=== PATIENT | male | born 1950 | race Caucasian/White ===

== ENCOUNTER → 2016-07-09 | Outpatient (CLI) | payer MEDICARE | END | disposition home or self-care (01) | LOC: PCVCCLINIC 15:52 | PROVIDERS: ATTEND Internal Medicine Cardiovascular Disease | DX: E78.5 Hyperlipidemia, unspecified (principal); I10 Essential (primary) hypertension; E03.9 Hypothyroidism, unspecified; I87.2 Venous insufficiency (chronic) (peripheral); I48.91 Unspecified atrial fibrillation; R07.89 Other chest pain; Z79.899 Other long term (current) drug therapy | CPT/HCPCS: 80061; 93005; G0463 ==

== ENCOUNTER → 2016-07-23 | Outpatient (CLI) | payer MEDICARE | END | disposition home or self-care (01) | LOC: PCVCIMAG 07:48 | PROVIDERS: ATTEND Internal Medicine Cardiovascular Disease | DX: I48.91 Unspecified atrial fibrillation (principal); I73.9 Peripheral vascular disease, unspecified; I10 Essential (primary) hypertension | CPT/HCPCS: 93306 ==

== ENCOUNTER → 2018-01-24 | Outpatient (CLI) | payer MEDICARE ==
--- NOTE | 2018-01-24 10:05 | PCVCIMAG ---
APPROVED REPORT Study performed: 01/24/2018 08:27:56 EXAM: Comprehensive 2D, Doppler, and color-flow Echocardiogram Patient Location: Echo lab Status: routine BSA: 2.39 HR: 64 bpmBP: 140/88 mmHg Rhythm: NSR Other Information Study Quality: Good Risk Factors: Cardiac Risk Factors: HTN, Hyperlipidemia Indications Atrial Fibrillation Hypertension/HDD PVD 2D Dimensions LVEF(%): 72.11 (>50%) IVSd: 13.37 (7-11mm)LVOT Diam: 23.10 (18-24mm) LVDd: 51.75 mm PWd: 13.46 (7-11mm)Ascending Ao: 41.69 (22-36mm) LVDs: 30.25 (25-40mm) Left Atrium: 44.24 (27-40mm) Aortic Root: 36.18 mm LV Single Plane 4CH: 57.96 % LV Single Plane 2CH: 73.46 %[place]'s LVEF: 65.71 % Biplane EF: 66.8 % Volumes Left Atrial Volume (Systole) Single Plane 4CH: 76.96 mLSingle Plane 2CH: 57.63 mL LA ESV Index: 30.00 mL/m2 Aortic Valve AoV Peak Ye.: 1.53 m/s AO Peak Gr.: 9.34 mmHgLVOT Max P.12 mmHg LVOT Max V: 1.13 m/s VANESSA Vmax: 3.10 cm2 Mitral Valve E/A Ratio: 1.7 MV Decel. Time: 325.47 ms MV E Max Ye.: 0.72 m/s MV A Ye.: 0.43 m/s IVRT: 96.89 ms TDI E/Lateral E': 6.55E/Medial E': 9.00 Medial E' Ye.: 0.08 m/s Lateral E' Ye.: 0.11 m/s Pulmonary Valve PV Peak Gr.: 3.11 mmHg Pulmonary Vein P Vein S: 0.64 m/sP Vein A: 0.29 m/s P Vein D: 0.64 m/sP Vein A Dur.: 90.0 msec P Vein S/D Ratio: 1.00 Tricuspid Valve TR Peak Ye.: 2.81 m/s TR Peak Gr.: 31.57 mmHg Left Ventricle The left ventricle is normal size. There is normal LV segmental wall motion. There is normal left ventricular wall thickness. Left ventricular systolic function is normal. The left ventricular ejection fraction is within the normal range. LVEF is 60-65%. The left ventricular diastolic function is normal. Right Ventricle The right ventricle is normal size. The right ventricular systolic function is normal. Atria The left atrium size is normal. The right atrium size is normal. Aortic Valve The aortic valve is normal in structure. Trace aortic regurgitation. There is no aortic valvular stenosis. Mitral Valve The mitral valve is normal in structure. There is no mitral valve regurgitation noted. No evidence of mitral valve stenosis. Tricuspid Valve The tricuspid valve is normal in structure. Mild tricuspid regurgitation. Pulmonary artery pressure is 39mmhg. Pulmonic Valve The pulmonary valve is normal in structure. Trace pulmonic regurgitation. Great Vessels The aortic root is normal in size. The ascending aorta is borderline dilated measuring 4.2cm. IVC is normal in size and collapses with >50% inspiration Pericardium There is no pericardial effusion. <Conclusion> The left ventricle is normal size. LVEF is 60-65%. The left ventricular diastolic function is normal. The right ventricle is normal size. The left atrium size is normal. The aortic valve is normal in structure. Trace aortic regurgitation. There is no mitral valve regurgitation noted. Mild tricuspid regurgitation. Pulmonary artery pressure is 39mmhg. The aortic root is normal in size. There is no pericardial effusion.
== END | disposition home or self-care (01) ==
LOC: PCVCIMAG 12:55
PROVIDERS: ATTEND Internal Medicine Cardiovascular Disease
DX: I07.1 Rheumatic tricuspid insufficiency (principal); I48.91 Unspecified atrial fibrillation; I10 Essential (primary) hypertension; I87.2 Venous insufficiency (chronic) (peripheral); E78.5 Hyperlipidemia, unspecified; I73.9 Peripheral vascular disease, unspecified; Z87.891 Personal history of nicotine dependence; Z88.8 Allergy status to other drugs, medicaments and biological substances; Z79.82 Long term (current) use of aspirin; Z79.899 Other long term (current) drug therapy
CPT/HCPCS: 93005; 93306; G0463